=== PATIENT | male | born 1965 | race Caucasian/White ===

== ENCOUNTER → 2017-01-07 | Outpatient (CLI) | payer BC | LOC: RAD 10:55 | DX: R59.0 Localized enlarged lymph nodes (principal) ==

== ENCOUNTER → 2021-04-22 | Outpatient (CLI) | payer BC | LOC: CARDREHAB 12:12 | DX: R40.0 Somnolence (principal); R41.89 Other symptoms and signs involving cognitive functions and awareness | CPT/HCPCS: G0399 ==

== ENCOUNTER → 2021-11-23 | Outpatient (CLI) | payer BC ==
[2021-11-23 10:46] LABS: ALBUMIN 3.8 g/dL (3.5-5.0); HEMATOCRIT 39.3 % (42.0-52.0); HEMOGLOBIN 12.3 g/dL (13.5-18.0); MEAN PLATELET VOLUME 9.7 fl (7.4-10.4); POTASSIUM 4.1 mmol/L (3.5-5.1); RED BLOOD COUNT 4.35 M/mm3 (4.20-5.60); RED CELL DISTRIBUTION WIDTH 12.9 % (11.5-14.5); WHITE BLOOD COUNT 5.2 K/mm3 (4.8-10.8)
[2021-11-23 10:47] LABS: CALCIUM 9.5 mg/dL (8.3-10.5)
[2021-11-23 10:48] LABS: TOTAL PROTEIN 7.7 g/dL (6.4-8.3)
[2021-11-23 10:53] LABS: TOTAL BILIRUBIN 0.4 mg/dL (0.2-1.2)
== END ==
LOC: LAB 10:13
PROVIDERS: Internal Medicine Infectious Disease
DX: J85.0 Gangrene and necrosis of lung (principal); Z98.890 Other specified postprocedural states